=== PATIENT | female | born 1970 | race Two or more races ===

== ENCOUNTER 2020-09-24 10:20 | Inpatient (IN) | payer OTHER ==
[~2020-09-24] VITALS: Ht 152.4 cm; Wt 68.9 kg
[2020-09-24] MEDS ORDERED: dexAMETHasone 10mg/ml Inj IV ONE (10:30)
[2020-09-24 10:35] VITALS: BP 149/94
--- NOTE | 2020-09-24 10:35 | NUR ---
ED Nurse Note: Pt BIBA for SOB since Tuesday. On Tuesday, pt was diagnosed COVID +. She is alert and orientedx4, ambulatory. She has been seen by ERMD. Pt is 95% 4L NC. She states she has nausea but no bodyaches or chills. IV established. Blood labs and COVID swab sent to lab.
--- NOTE | 2020-09-24 11:14 | Diagnostic Imaging Report ---
Indication: Reason For Exam: SOB Technique: Single AP view of the chest. Comparison: None. Findings: Heart is not enlarged when accounting for projection and technique. There are scattered bilateral patchy airspace opacities as well as diffuse interstitial opacities. No pneumothorax. No pleural effusion. No osseous abnormality. IMPRESSION: Diffuse bilateral airspace disease, the differential for which includes multifocal or atypical/viral pneumonia, less likely alveolar pulmonary edema.
[2020-09-24 11:21] LABS: BASOPHILS % (AUTO) 0.2 % (0.0-2.0); EOSINOPHILS % (AUTO) 0.3 % (0.0-3.0); HEMATOCRIT 40.9 % (37.0-47.0); HEMOGLOBIN 13.6 G/DL (12.0-16.0); LYMPHOCYTES % (AUTO) 16.2 % (20.0-45.0); MEAN CORPUSCULAR VOLUME 87 FL (80-99); MONOCYTES % (AUTO) 5.6 % (1.0-10.0); NEUTROPHILS % (AUTO) 77.7 % (45.0-75.0); PLATELET COUNT 384 K/UL (150-450); RED BLOOD COUNT 4.69 M/UL (4.20-5.40); RED CELL DISTRIBUTION WIDTH 13.2 % (11.6-14.8); WHITE BLOOD COUNT 6.5 K/UL (4.8-10.8)
--- NOTE | 2020-09-24 11:33 | Emergency Room Report ---
History of Present Illness General Chief Complaint: Dyspnea/Respdistress Source: Patient, EMS Present Illness HPI This patient states that she began having body aches and upper respiratory symptoms about 10 days ago. She states that she did receive the results of her COVID-19 test 5 days ago. She states that she began feeling short of breath 5 days ago also. She states she has been fatigued. She has had low-grade fever. She denies chest pain or abdominal pain. She denies nausea or vomiting. She has no other complaints. 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 COVID-19 Screening: Positive COVID-19 COVID-19 Testing Source: unk Patient History Past Medical History: none, see triage record Social History: Denies: smoking, alcohol use, drug use Last Menstrual Period: unk Now: No Reviewed Nursing Documentation: PMH: Agreed; PSxH: Agreed Nursing Documentation-PMH Past Medical History: No History, Except For Review of Systems All Other Systems: negative except mentioned in HPI Physical Exam Vital Signs Date Time Temp Pulse Resp B/P (MAP) Pulse Ox O2 Delivery O2 Flow Rate FiO2 09/24/20 10:13 98.2 88 18 154/96 (115) 89 Room Air 09/24/20 10:35 4.0 09/24/20 10:35 95 Sp02 EP Interpretation: reviewed, normal General Appearance: no apparent distress, alert, GCS 15, non-toxic Head: normocephalic, atraumatic Eyes: bilateral eye normal inspection, bilateral eye PERRL ENT: hearing grossly normal, normal pharynx, no angioedema, normal voice Neck: normal inspection, full range of motion Respiratory: chest non-tender, lungs clear, normal breath sounds, no respiratory distress, no retraction, no accessory muscle use, speaking full sentences Cardiovascular #1: regular rate, rhythm, no edema Gastrointestinal: normal bowel sounds, non tender, soft, non-distended, no guarding, no rebound Rectal: deferred Musculoskeletal: back normal, normal range of motion, gait/station normal, non- tender Neurologic: alert, motor strength/tone normal, oriented x3, sensory intact, responsive, speech normal Psychiatric: judgement/insight normal, memory normal, mood/affect normal, no suicidal/homicidal ideation Skin: no rash, normal color Medical Decision Making Diagnostic Impression: Primary Impression: COVID-19 Additional Impressions: Hypoxemia Dyspnea Pulmonary edema ER Course This patient has COVID-19 pulmonary edema with hypoxemia. Room air oxygen saturation is around 89 to 90%. On 4 L of nasal cannula the patient's oxygen saturation was 97 to 98%. The patient was given Decadron given the hypoxemia and also Lovenox given the association of COVID-19 with procoagulation. The patient was instructed on proning and admitted for pulmonary hygiene and further monitoring for her hypoxemia. Further COVID-19 care deferred to the inpatient physician caring for the patient. This patient was evaluated in the context of the global COVID-19 pandemic, which necessitated consideration that the patient might be at risk for infection with the [id number]-7 virus that causes COVID-19. Institutional protocols and algorithms that pertain to the evaluation of patients at risk for COVID-19 and the state of rapid change based on information released by multiple regulatory bodies including the CDC and federal and state organizations. These policies and algorithms were followed during the patient's care in the ED. Laboratory Tests Test 09/24/20 10:51 09/24/20 12:00 White Blood Count 6.5 K/UL (4.8-10.8) Red Blood Count 4.69 M/UL (4.20-5.40) Hemoglobin 13.6 G/DL (12.0-16.0) Hematocrit 40.9 % (37.0-47.0) Mean Corpuscular Volume 87 FL (80-99) Mean Corpuscular Hemoglobin 29.0 PG (27.0-31.0) Mean Corpuscular Hemoglobin Concent 33.2 G/DL (32.0-36.0) Red Cell Distribution Width 13.2 % (11.6-14.8) Platelet Count 384 K/UL (150-450) Mean Platelet Volume 6.3 FL (6.5-10.1) L Neutrophils (%) (Auto) 77.7 % (45.0-75.0) H Lymphocytes (%) (Auto) 16.2 % (20.0-45.0) L Monocytes (%) (Auto) 5.6 % (1.0-10.0) Eosinophils (%) (Auto) 0.3 % (0.0-3.0) Basophils (%) (Auto) 0.2 % (0.0-2.0) Prothrombin Time 10.6 SEC (9.30-11.50) Prothrombin Time INR 1.0 (0.9-1.1) Activated Partial Thromboplast Time 32 SEC (23-33) D-Dimer 0.52 mg/L FEU (0.00-0.49) H Sodium Level 139 MMOL/L (136-145) Potassium Level 3.3 MMOL/L (3.5-5.1) L Chloride Level 102 MMOL/L (98-107) Carbon Dioxide Level 29 MMOL/L (21-32) Anion Gap 8 mmol/L (5-15) Blood Urea Nitrogen 18 mg/dL (7-18) Creatinine 1.2 MG/DL (0.55-1.30) Estimated Glomerular Filtration Rate 47.9 mL/min (>60) Glucose Level 97 MG/DL (74-106) Lactic Acid Level 1.40 mmol/L (0.4-2.0) Calcium Level 8.2 MG/DL (8.5-10.1) L Ferritin 653 NG/ML (8-388) H Total Bilirubin 0.5 MG/DL (0.2-1.0) Aspartate Amino Transferase (AST) 113 U/L (15-37) H Alanine Aminotransferase (ALT) 102 U/L (12-78) H Alkaline Phosphatase 104 U/L (46-116) Lactate Dehydrogenase 374 U/L (81-234) H Total Creatine Kinase 50 U/L (26-308) Creatine Kinase MB < 0.5 NG/ML (0.0-3.6) Creatine Kinase MB Relative Index 1.0 Troponin I 0.000 ng/mL (0.000-0.056) C-Reactive Protein, Quantitative 26.7 mg/dL (0.00-0.90) H Total Protein 8.6 G/DL (6.4-8.2) H Albumin 3.0 G/DL (3.4-5.0) L Globulin 5.6 g/dL Albumin/Globulin Ratio 0.5 (1.0-2.7) L Lipase 272 U/L (73-393) Urine Color Pending Urine Appearance Pending Urine pH Pending Urine Specific [place] Pending Urine Protein Pending Urine Glucose (UA) Pending Urine Ketones Pending Urine Blood Pending Urine Nitrite Pending Urine Bilirubin Pending Urine Urobilinogen Pending Urine Leukocyte Esterase Pending Microbiology Date/Time Source Procedure Growth Status 09/24/20 10:51 Nasopharynx SARS-CoV-2 RdRp Gene Assay - Final Complete EKG Diagnostic Results Rate: normal Rhythm: NSR ST Segments: no acute changes Rhythm Strip Diag. Results EP Interpretation: yes Rate: 70's Rhythm: NSR, no PVC's, no ectopy Chest X-Ray Diagnostic Results Chest X-Ray Diagnostic Results : Chest X-Ray Ordered: Yes # of Views/Limited/Complete: 1 View Indication: Shortness of Breath EP Interpretation: Yes Interpretation: other - Diffuse bilateral patchy opacities. Impression: Other - Multi-focal pnemonia Electronically Signed by: Josiane Lizama DO Last Vital Signs Date Time Temp Pulse Resp B/P (MAP) Pulse Ox O2 Delivery O2 Flow Rate FiO2 09/24/20 10:35 85 19 Nasal Cannula 4.0 95 09/24/20 10:35 98.2 149/94 95 Disposition: ADMITTED INPATIENT Condition: Serious Scripts No Active Prescriptions or Reported Meds Referrals: NOT CHOSEN IPA/MD,REFERRING (PCP) Josiane Lizama DO Sep 24, 2020 11:33
[2020-09-24 12:02] LABS: ANION GAP 8 mmol/L (5-15); BLOOD UREA NITROGEN 18 mg/dL (7-18); CALCIUM 8.2 MG/DL (8.5-10.1); CARBON DIOXIDE 29 MMOL/L (21-32); CHLORIDE 102 MMOL/L (98-107); CREATININE 1.2 MG/DL (0.55-1.30); POTASSIUM 3.3 MMOL/L (3.5-5.1); SODIUM 139 MMOL/L (136-145)
--- NOTE | 2020-09-24 12:04 | NUR ---
ED Nurse Note: Urine sent.
[2020-09-24 12:21] LABS: ALANINE AMINOTRANSFERASE 102 U/L (12-78); ALBUMIN/GLOBULIN RATIO 0.5 (1.0-2.7); ALKALINE PHOSPHATASE 104 U/L (46-116); ASPARTATE AMINO TRANSFERASE 113 U/L (15-37); BILIRUBIN,TOTAL 0.5 MG/DL (0.2-1.0); CKMB < 0.5 NG/ML (0.0-3.6); CREATINE KINASE 50 U/L (26-308); FERRITIN 653 NG/ML (8-388); LACTATE DEHYDROGENASE 374 U/L (81-234)
[2020-09-24 12:26] LABS: APPEARANCE,URINE SLIGHTLY CLOUDY; BILIRUBIN, URINE NEGATIVE (NEGATIVE); GLUCOSE, URINE (UA) NEGATIVE (NEGATIVE); KETONES,URINE 1+ (NEGATIVE); LEUKOCYTE ESTERASE ,URINE 2+ (NEGATIVE); NITRITE,URINE NEGATIVE (NEGATIVE); PH,URINE 5 (4.5-8.0); PROTEIN,URINE 3+ (NEGATIVE); UROBILINOGEN,URINE 1 MG/DL (0.0-1.0)
[2020-09-24] MEDS ORDERED: Enoxaparin 40mg Inj SUBQ SCH (12:30)
[2020-09-24] MEDS ORDERED: Azithromycin 500 MG in NS 275 ML IVPB ONE (12:30)
[2020-09-24 12:35] LABS: COLOR,URINE YELLOW
[2020-09-24 13:00] VITALS: BP 142/90
--- NOTE | 2020-09-24 14:18 | NUR ---
ED Nurse Note: Report given to Tulio BOLANOS./
--- NOTE | 2020-09-24 14:20 | NUR ---
ED Nurse Note: Pt transferred to tele unit with all belongings. Pt has no acute distress. Received by RN.
--- NOTE | 2020-09-24 14:40 | NUR ---
NURSE NOTES: Patient received by ED nurse Paula. Patient was aao x4 on 4 L nasal cannula. Upon transfer to bed from [facility], patient became short of breath and was laid in bed and vital signs were taken. P: 77, O2: 94%, T: 98.2, BP: 154/84, RR: 22. The patients belonging list was verified and acknowledged. The patient was then placed on the mobile crane operator. The patient was oriented to the room, the bed was placed in the lowest position, locked side rails x2 and bed alarm in zone 1. The patient was educated on fall risk, the call light within reach and yellow socks were applied on patient. Dr. Parker was notified of admission and awaiting orders.
[2020-09-24 16:00] VITALS: BP 141/86
[2020-09-24] MEDS ORDERED: Albuterol/Ipratropium 3ml neb HHN PRN (16:15)
[2020-09-24] MEDS: D5 1/2NS 1,000 ML IV SCH (16:15)
[2020-09-24] MEDS ORDERED: Loading Dose:Remdesivir 200mg/NS 210ml IV SCH ×2 (18:00)
--- NOTE | 2020-09-24 18:45 | Consultation ---
DATE OF CONSULTATION: 09/24/2020 PULMONARY CONSULTATION HISTORY OF PRESENT ILLNESS: This is a 49-year-old female who came to the hospital with upper respiratory symptoms with cough and congestion as well as body aches. She reports it has been ongoing for about 10 days. She states she was found to be COVID-19 positive about 5 days ago. The patient underwent a repeat COVID-19 rapid gene assay at [facility], which had a positive result. The patient underwent imaging studies, which showed diffuse bilateral patchy airspace disease suspicious for pneumonic process. The patient has a history of recent positivity for COVID-19 five days ago. No other medical illnesses known. ALLERGIES: None. SURGERIES: None. REVIEW OF SYSTEMS: Denies any headaches, hematemesis, melena, or hematochezia. PHYSICAL EXAMINATION: GENERAL: A 49-year-old female. HEENT: Unremarkable. LUNGS: Clear breath sounds bilaterally. ABDOMEN: Soft. EXTREMITIES: There is no edema. NEUROLOGIC: Nonfocal. VITAL SIGNS: Blood pressure at this time is 130/60, heart rate is 104, respirations 20. She is afebrile. O2 sat is 96% on 4 L oxygen. LABORATORY TESTING: Normal CBC and BMP. Ferritin 653. AST, ALT are both elevated. LDH 374, CRP 26.7, potassium 3.3. Coags, D-dimer is 0.5. Urinalysis negative. IMAGING STUDIES: X-ray chest obtained, which shows bilateral airspace disease. IMPRESSION: 1. COVID-19 pneumonia. 2. No other known medical illnesses. 3. Mild hypoxemia. DISCUSSION: The patient is a candidate for Decadron, which she received in the emergency room. She will be on DVT prophylaxis and broad-spectrum antibiotics. Remdesivir has been started per Dr. Young. We will follow carefully. Order oxygen as needed. Mario Alberto Gallo M.D. DR: LAINEY JOB#: [id number] CC:
--- NOTE | 2020-09-24 19:00 | NUR ---
NURSE HAND-OFF REPORT: Important Events on Shift:[Arrived to Tele @ 1440, administered remdesivir per MD and combivent for shortness of breath ] Patient Status: [aaox4, stable, full code] Diet: [Regular] Pending Orders: [N/A] Pending Results/Labs:[N/A] Pending MD notification:[N/A] Latest Vital Signs: Temperature 97.5 , Pulse 79 , B/P 141 /86 , Respiratory Rate 20 , O2 SAT 96 , Nasal Cannula, O2 Flow Rate 4.0 . Vital Sign Comment: [] EKG Rhythm: Sinus Rhythm Rhythm change?: N MD Notified?: - MD Response: Latest Ackerman Fall Score: 30 Fall Risk: Medium Risk Safety Measures: Call light Within Reach, Bed Alarm Zone 1, Side Rails Side Rails x1, Bed position Low and Locked. Fall Precautions: Yellow Socks Yellow Gown Patient Fall Education Report given to [LUIS MIGUEL Gallo].
--- NOTE | 2020-09-24 19:10 | NUR ---
NURSE NOTES: Important Events on Shift: Received report from Carlos A Casey RN. Pt is in stable condition, no signs or symptoms of distress or pain noted. Pt is slightly tachypneic, RR 26, c/o SOB o2 raised to 4LPM. Pt received first dose of remdesivir during AM shift. No signs or symptoms of adverse reaction noted. Pt denies pain at this time. Will continue to monitor closely. Will continue plan of care. Patient Status: stable Diet: regular Pending Orders: none Pending Results/Labs: cmp, cbc, billirubin Pending MD notification: none Latest Vital Signs: Temperature 97.5 , Pulse 79 , B/P 141 /86 , Respiratory Rate 20 , O2 SAT 96 , Nasal Cannula, O2 Flow Rate 4.0 . Vital Sign Comment: stable EKG Rhythm: Sinus Rhythm Rhythm change?: N MD Notified?: - MD Response: Latest Ackerman Fall Score: 30 Fall Risk: Medium Risk Safety Measures: Call light Within Reach, Bed Alarm Zone 1, Side Rails Side Rails x1, Bed position Low and Locked. Fall Precautions: YES Yellow Socks YES Yellow Gown YES Patient Fall Education YES
[2020-09-24 20:00] VITALS: BP 146/88
[2020-09-24] MEDS: Heparin 5000 units/ml inj SUBQ SCH (21:28)
[2020-09-24] MEDS ORDERED: Acetaminophen 500mg (ES) tab ORAL PRN (23:15)
[2020-09-24] MEDS: guaiFENesin /DM 10ml syrup ORAL PRN (23:35)
[2020-09-25] VITALS: BP 138/89
[2020-09-25 04:00] VITALS: BP 136/82
[2020-09-25 07:38] LABS: BASOPHILS % (AUTO) 0.7 % (0.0-2.0); EOSINOPHILS % (AUTO) 0.1 % (0.0-3.0); HEMATOCRIT 36.7 % (37.0-47.0); HEMOGLOBIN 12.6 G/DL (12.0-16.0); LYMPHOCYTES % (AUTO) 19.4 % (20.0-45.0); MEAN CORPUSCULAR VOLUME 85 FL (80-99); MONOCYTES % (AUTO) 10.9 % (1.0-10.0); NEUTROPHILS % (AUTO) 68.9 % (45.0-75.0); PLATELET COUNT 430 K/UL (150-450); RED CELL DISTRIBUTION WIDTH 12.9 % (11.6-14.8); WHITE BLOOD COUNT 4.1 K/UL (4.8-10.8)
--- NOTE | 2020-09-25 07:43 | NUR ---
NURSE HAND-OFF REPORT: Important Events on Shift: Increase in coughing and SOB, Hannah notifed. Patient Status: stable Diet: reg Pending Orders: none Pending Results/Labs: cmp, cbc, billirubin Pending MD notification: none Latest Vital Signs: Temperature 97.9 , Pulse 70 , B/P 136 /82 , Respiratory Rate 18 , O2 SAT 95 , Nasal Cannula, O2 Flow Rate 4.0 . Vital Sign Comment: stable EKG Rhythm: Sinus Rhythm Rhythm change?: N MD Notified?: - MD Response: Latest Ackerman Fall Score: 35 Fall Risk: Medium Risk Safety Measures: Call light Within Reach, Bed Alarm Zone 1, Side Rails Side Rails x2, Bed position Low and Locked. Fall Precautions: YES Yellow Socks YES Yellow Gown YES Door Sign YES Patient Fall Education YES Report given to ANTHONY Wood RN
--- NOTE | 2020-09-25 07:50 | NUR ---
NURSE NOTES: Called respiratory therapist regarding oxygen desaturation to 90%. Patient in stable condition but is short of breath. Called and left voicemail for Dr. Gallo regarding desaturation to low 90's and request for oxygen, provided callback number.
[2020-09-25 07:55] LABS: ALANINE AMINOTRANSFERASE 84 U/L (12-78); ALBUMIN 2.6 G/DL (3.4-5.0); ALBUMIN/GLOBULIN RATIO 0.5 (1.0-2.7); ALKALINE PHOSPHATASE 97 U/L (46-116); ANION GAP 7 mmol/L (5-15); ASPARTATE AMINO TRANSFERASE 84 U/L (15-37); BILIRUBIN,DIRECT 0.1 MG/DL (0.0-0.3); BILIRUBIN,TOTAL 0.4 MG/DL (0.2-1.0); BLOOD UREA NITROGEN 20 mg/dL (7-18); CALCIUM 8.1 MG/DL (8.5-10.1); CARBON DIOXIDE 28 MMOL/L (21-32); CHLORIDE 104 MMOL/L (98-107); CREATININE 0.8 MG/DL (0.55-1.30); POTASSIUM 3.9 MMOL/L (3.5-5.1); SODIUM 138 MMOL/L (136-145)
[2020-09-25 08:00] VITALS: BP 132/68
[2020-09-25] MEDS: D5 1/2NS 1,000 ML IV SCH (08:59)
[2020-09-25] MEDS: Heparin 5000 units/ml inj SUBQ SCH ×2 (09:00→20:50)
[2020-09-25] MEDS: guaiFENesin /DM 10ml syrup ORAL PRN (09:23)
[2020-09-25 12:00] VITALS: BP 148/90
--- NOTE | 2020-09-25 12:01 | NUR ---
P.T Note: P.T evaluation completed and tx initiated. Please refer to P.T evaluation for current functional status. Pt is alert, O x 4. NO c/o pain. however ADL/functional mobility participation is limited by generalized weakness and coughing and SOB with minimal exertion. Pt currently at 6 l/min O2 via NC saturating at 94-95% at rest and 88-89% with exertion. Pt able to perform bed mobility tasks independent and CGA X 1 for transfers OOB. Pt was only able to stand however too weak and out of breath to take further steps. Pt required for slow pacing and proper breathing technique to conserve energy, alleviate SOB and maximize function. Pt will be seen 5x/wk, QD for skilled P.T to improve activity tolerance and facilitate return to PLOF. Pt is cleared for OOB activities with nursing assist.
--- NOTE | 2020-09-25 13:00 | NUR ---
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 98.3 HR 88 RR 18 B/P 154/96 4L NC O2 SAT @ 98% K 3.3 AST 113 ALK 100 CXR=Diffuse bilateral airspace disease, the differential for which includes multifocal or atypical/viral pneumonia, less likely alveolar pulmonary edema. IS: DECADRON IV LOVENOX SUBC. ADMITTED TO TELE @ 1420 TELE STATUS DCP RETURN HOME
--- NOTE | 2020-09-25 13:21 | NUR ---
ELECTRIC TRANSFER OPERATOR NOTES CLINICALS FAXED TO [facility].
[2020-09-25 16:00] VITALS: BP 144/86
--- NOTE | 2020-09-25 16:01 | Pulmonology Progress Note ---
Subjective ROS Limited/Unobtainable: No Constitutional: Denies: fever HEENT: Repors: no symptoms Respiratory: Reports: shortness of breath Cardiovascular: Reports: no symptoms Gastrointestinal/Abdominal: Reports: no symptoms Allergies: Coded Allergies: No Known Allergies (Unverified , 09/24/20) Objective Last 24 Hour Vital Signs Date Time Temp Pulse Resp B/P (MAP) Pulse Ox O2 Delivery O2 Flow Rate FiO2 09/25/20 12:00 62 09/25/20 12:00 97.7 66 20 148/90 (109) 100 09/25/20 09:00 Non-Rebreather 6.0 09/25/20 08:00 70 09/25/20 08:00 97.5 65 20 132/68 (89) 93 09/25/20 04:00 97.9 70 18 136/82 (100) 95 09/25/20 04:00 70 09/25/20 00:04 98.1 09/25/20 00:00 98.1 67 22 138/89 (105) 95 09/25/20 00:00 72 09/24/20 21:00 Nasal Cannula 4.0 09/24/20 20:00 97.7 67 22 146/88 (107) 95 09/24/20 20:00 78 09/24/20 16:00 97.5 79 20 141/86 (104) 96 09/24/20 16:00 75 Intake and Output 09/24/20 09/25/20 19:00 07:00 Intake Total 120 ml Balance 120 ml Intake Oral 0 ml IV Total 120 ml # Voids 1 2 Objective 10/05/2020 pt asleep; per RN, earlier today pt's saturation dropped to 90% on 4 lpm NC with increased work of breathing General Appearance: WD/WN, no acute distress HEENT: normocephalic, atraumatic Respiratory: chest wall non-tender, lungs clear Cardiovascular: normal rate, regular rhythm Neurologic: alert, oriented x 3 Microbiology Date/Time Source Procedure Growth Status 09/24/20 10:51 Nasopharynx SARS-CoV-2 RdRp Gene Assay - Final Complete Laboratory Tests 09/25/20 05:43: White Blood Count 4.1L, Red Blood Count 4.30, Hemoglobin 12.6, Hematocrit 36.7L, Mean Corpuscular Volume 85, Mean Corpuscular Hemoglobin 29.3, Mean Corpuscular Hemoglobin Concent 34.3, Red Cell Distribution Width 12.9, Platelet Count 430, Mean Platelet Volume 6.4L, Neutrophils (%) (Auto) 68.9, Lymphocytes (%) (Auto) 19.4L, Monocytes (%) (Auto) 10.9H, Eosinophils (%) (Auto) 0.1, Basophils (%) (Auto) 0.7, Sodium Level 138, Potassium Level 3.9, Chloride Level 104, Carbon Dioxide Level 28, Anion Gap 7, Blood Urea Nitrogen 20H, Creatinine 0.8, Estimat Glomerular Filtration Rate > 60, Glucose Level 109H, Calcium Level 8.1L, Total Bilirubin 0.4, Direct Bilirubin 0.1, Aspartate Amino Transf (AST/SGOT) 84H, Alanine Aminotransferase (ALT/SGPT) 84H, Alkaline Phosphatase 97, Total Protein 8.1, Albumin 2.6L, Globulin 5.5, Albumin/Globulin Ratio 0.5L Current Medications Medications (Trade) Dose Ordered Sig/Shannon Route PRN Reason Start Time Stop Time Status Last Admin Dose Admin Acetaminophen (Tylenol) 500 mg Q6H PRN ORAL Pain Scale 1-3/ Temp > 100.4 F 09/24/20 23:15 10/24/20 23:14 09/24/20 23:34 Albuterol/ Ipratropium (Combivent Respimat) 1 puff Q6H PRN INH Shortness of Breath 09/24/20 16:30 10/24/20 16:29 09/24/20 18:28 Dexamethasone (Decadron) 6 mg DAILY ORAL 09/25/20 09:00 10/04/20 09:01 09/25/20 08:58 Dextrose/Sodium Chloride 1,000 ml @ 60 mls/hr [id number] IV 09/24/20 16:15 10/24/20 16:14 09/25/20 08:59 Guaifenesin/ Dextromethorphan (Robitussin DM Syrup) 15 ml Q8H PRN ORAL For Cough 09/24/20 23:15 12/23/20 23:14 09/25/20 09:23 Heparin Sodium (Porcine) (Heparin 5000 units/ml) 5,000 units EVERY 12 HOURS SUBQ 09/24/20 21:00 11/08/20 20:59 12/10/20 09:00 Ondansetron HCl (Zofran) 4 mg Q6H PRN IVP Nausea & Vomiting 09/24/20 23:15 10/24/20 23:14 Remdesivir 100 mg/ Sodium Chloride 250 ml @ 250 mls/hr Q24H IV 09/25/20 18:00 09/28/20 18:59 Assessment/Plan Assessment/Plan 1. COVID-19 pneumonia. - Continue Decadron - broad-spectrum Abx - Remdesivir added per Dr. Young - pt was desaturating down to 90% on 4 lpm today with increased work of breathing - currently on 15 L NRB; titrate while keeping SaO2 >92% 2. No other known medical illnesses. 3. Mild hypoxemia. DVT ppx The care of this patient was discussed with my supervising physician Time spent for this encounter was approximately 31 minutes The patient was seen and examined at bedside and all new and available data was reviewed in the patients chart. I agree with the above findings, impression, and plan. (Patient was seen earlier today. Signature timestamp does not reflect patient encounter time) Winston Arredondo MD Sep 25, 2020 16:01 Mario Alberto Gallo MD Sep 25, 2020 17:49
--- NOTE | 2020-09-25 16:45 | Consultation ---
DATE OF CONSULTATION: 09/25/2020 INFECTIOUS DISEASES CONSULTATION CONSULTING PHYSICIAN: Hugo Flynn MD This consult is for coverage of Mati Young MD PRIMARY ATTENDING PHYSICIAN: Ankur Parker DO REASON FOR CONSULT: COVID-19 pneumonia. HISTORY OF PRESENT ILLNESS: This is a 49-year-old [place] female admitted yesterday from home complaining of fatigue and upper respiratory symptoms for 10 days. She has shortness of breath for 5 days and positive COVID testing on 09/23/2020. She had low-grade fever and found to be hypoxemic, currently on 6 L oxygen. PAST MEDICAL HISTORY: Insignificant. ALLERGIES: No known drug allergies. MEDICATIONS: Getting remdesivir, dexamethasone, Tylenol, heparin, albuterol/ipratropium inhaler. SOCIAL HISTORY: She is . and son have COVID. Denies alcohol and drug abuse. Denies smoking. REVIEW OF SYSTEMS: As per history of present illness. No fever in the hospital. PHYSICAL EXAMINATION: VITAL SIGNS: Temperature is 97.9, pulse 70, and blood pressure is 136/82. GENERAL APPEARANCE: She seems to have normal weight. HEAD AND NECK: Parnell conjunctivae. HEART: Normal rate. LUNGS: Clear. She has frequent dry cough. ABDOMEN: Soft and nontender. EXTREMITIES: No edema. NEUROLOGIC: She is awake, alert, and oriented x3. LABORATORY AND DIAGNOSTIC DATA: WBC 4.1, hemoglobin 12.6, hematocrit 36.4, platelet is 430,000. Sodium 138, potassium 3.9, chloride 104, bicarb 28, BUN 20, creatinine 0.8, glucose is 109. AST 84, ALT 84, alkaline phosphatase 97, albumin is 2.6. Chest x-ray shows diffuse bilateral infiltrates atypical viral pneumonia, less likely pulmonary edema. IMPRESSION: COVID-19 pneumonia, hypoxemia, and elevated transaminase. RECOMMENDATION: We will continue dexamethasone and remdesivir. I will follow up the clinical course. At the end of my exam, I thank Dr. Parker for involving me in the care of this patient. Hugo Flynn M.D. DR: AI JOB#: [id number] CC: CAIO
[2020-09-25] MEDS ORDERED: Maintenance Dose:Remdesivir 100mg/NS 230ml x 4 Doses IV SCH ×2 (18:00)
[2020-09-25] MEDS: Maintenance Dose:Remdesivir 100mg/NS 230ml x 4 Doses IV SCH ×2 (18:11)
--- NOTE | 2020-09-25 19:30 | NUR ---
NURSE HAND-OFF REPORT: Important Events on Shift: nonrebreather 15L fiO2 60 spO2 99% Patient Status: full code, alert and oriented x4, stable condition with oxygen applied Diet: regular Pending Orders: [] Pending Results/Labs:[] Pending MD notification:[] Latest Vital Signs: Temperature 97.7 , Pulse 65 , B/P 144 /86 , Respiratory Rate 20 , O2 SAT 100 , Non-Rebreather, O2 Flow Rate 6.0 . Vital Sign Comment: [] EKG Rhythm: Sinus Rhythm Rhythm change?: N MD Notified?: - MD Response: Latest Ackerman Fall Score: 35 Fall Risk: Medium Risk Safety Measures: Call light Within Reach, Bed Alarm Zone 1, Side Rails Side Rails x2, Bed position Low and Locked. Fall Precautions: Yellow Socks Yellow Gown Door Sign Patient Fall Education Report given to Danita Barnett RN.
--- NOTE | 2020-09-25 19:40 | NUR ---
Received report from LUIS MIGUEL Victor. Pt is in stable condition, no signs or symptoms of distress or pain noted. Pt is a/ox 4. Pt is slightly tachypneic, RR 26, c/o SOB 15l non-rebreather FIO2 60. Pt received 2/4 dose of remdesivir during AM shift. No signs or symptoms of adverse reaction noted. Pt denies pain at this time. IV on right ac 20G running D5 1/2 NS. patent flushed no erythema or bleeding. Will continue to monitor closely. Will continue plan of care.
[2020-09-25 20:00] VITALS: BP 134/84
--- NOTE | 2020-09-25 20:15 | History and Physical Report ---
DATE OF ADMISSION: 09/24/2020 DATE AND TIME SEEN: 09/25/2020 at 1 p.m. CONSULTANTS: 1. Mati Young MD. 2. Mario Alberto Gallo MD. CHIEF COMPLAINT: COVID infection, short of breath, pneumonia. BRIEF HISTORY: This 49-year-old female presents to [place] last night with history of increased shortness of breath x2 days, was found to have pneumonia and COVID infection, pulmonary disease, was hypoxemic at 89%. Patient was admitted to [facility]. Currently getting pulmonary treatment, sleepy in bed, not talking much. History is obtained from chart. REVIEW OF SYSTEMS: Unavailable. PAST MEDICAL HISTORY: Nothing. PAST SURGICAL HISTORY: None. MEDICATIONS: Remdesivir, dexamethasone, Zofran, Tylenol, heparin, potassium, albuterol. ALLERGIES: Denies. SOCIAL HISTORY: No smoking or alcohol. No intravenous drug abuse. FAMILY HISTORY: Noncontributory. PHYSICAL EXAMINATION: GENERAL: Sleeping in bed, getting pulmonary treatment, slight short of breath, sleepy. Calm in room. VITAL SIGNS: Temperature is 97, pulse 66, respirations 20, blood pressure 148/90. HEENT: Normocephalic, atraumatic. NECK: Trachea midline. CARDIOVASCULAR: No peripheral edema. LUNGS: Slightly short of breath. ABDOMEN: No apparent wounds. EXTREMITIES: No cyanosis or clubbing. NEUROLOGIC: Patient is moving all extremities, slightly weak. LABORATORY AND DIAGNOSTIC DATA: Labs at this time show white count 4.1, otherwise CBC is normal. BMP shows BUN is 20, glucose 109, calcium 8.1. AST and ALT are both 84. Albumin 2.6. ASSESSMENT: 1. COVID infection. 2. Pneumonia. 3. Pulmonary disease. 4. Malnutrition. 5. Hypoxemia. PLAN: 1. O2, pulmonary treatment. 2. Antibiotics per Infectious Disease. 3. Dietary followup. 4. PT, dietary evaluation. 5. CBC, BMP in the morning. Ankur Parker D.O. DR: LAURO JOB#: [id number] CC:
[2020-09-26] VITALS: BP 145/83
[2020-09-26] MEDS: D5 1/2NS 1,000 ML IV SCH ×2 (01:35→17:57)
[2020-09-26 04:00] VITALS: BP 146/87
--- NOTE | 2020-09-26 07:07 | NUR ---
NURSE HAND-OFF REPORT: Important Events on Shift: Patient completed 2/4 bags of Remdesivir Patient Status: No acute distress Diet: Regular diet Pending Orders: Pending Results/Labs: Pending MD notification: Latest Vital Signs: Temperature 98.1 , Pulse 58 , B/P 146 /87 , Respiratory Rate 22 , O2 SAT 98 , Non-Rebreather, O2 Flow Rate 15.0 . Vital Sign Comment: EKG Rhythm: Sinus Bradycardia Rhythm change?: N MD Notified?: - MD Response: Latest Ackerman Fall Score: 35 Fall Risk: Medium Risk Safety Measures: Call light Within Reach, Bed Alarm Zone 1, Side Rails Side Rails x2, Bed position Low and Locked. Fall Precautions: Yellow Socks Yellow Gown Door Sign Patient Fall Education Report given to Lorin BOLANOS.
--- NOTE | 2020-09-26 07:25 | NUR ---
NURSE NOTES: Received report from Danita/RN. Pt awake, having breakfast in bed. Alert and oriented, able to make needs known. On non-rebreather mask 15L Fio2 60%, no distress or SOB noted. IV on left AC 22G running D5 1/2 NS @ 60ml/hr. Bed in lowest position and locked. Call light within reach, encouraged to use it when needed. Side rails up X2. Will continue plan of care.
[2020-09-26 07:55] LABS: BASOPHILS % (AUTO) 0.1 % (0.0-2.0); HEMATOCRIT 34.8 % (37.0-47.0); HEMOGLOBIN 12.3 G/DL (12.0-16.0); LYMPHOCYTES % (AUTO) 15.3 % (20.0-45.0); MEAN CORPUSCULAR VOLUME 83 FL (80-99); MONOCYTES % (AUTO) 7.4 % (1.0-10.0); NEUTROPHILS % (AUTO) 77.2 % (45.0-75.0); PLATELET COUNT 472 K/UL (150-450); RED BLOOD COUNT 4.18 M/UL (4.20-5.40); RED CELL DISTRIBUTION WIDTH 13.9 % (11.6-14.8)
[2020-09-26 08:00] VITALS: BP 152/86
--- NOTE | 2020-09-26 08:03 | NUR ---
CASE MANAGEMENT:REVIEW 09/26/20 SI: COVID PNA 98.1 63 22 146/87 98% ON NRB 15L IS: IV REMDESIVIR Q24 ( DECADRON PO QD HEPARIN SQ Q12 IVF@ 60/HR DUONEB HHN Q6HRS PRN : TELEMETRY STATUS DCP; FROM HOME
[2020-09-26 08:10] LABS: ALANINE AMINOTRANSFERASE 64 U/L (12-78); ALBUMIN 2.5 G/DL (3.4-5.0); ALBUMIN/GLOBULIN RATIO 0.5 (1.0-2.7); ALKALINE PHOSPHATASE 86 U/L (46-116); ANION GAP 8 mmol/L (5-15); ASPARTATE AMINO TRANSFERASE 57 U/L (15-37); BILIRUBIN,DIRECT < 0.1 MG/DL (0.0-0.3); BILIRUBIN,TOTAL 0.3 MG/DL (0.2-1.0); BLOOD UREA NITROGEN 20 mg/dL (7-18); CALCIUM 7.7 MG/DL (8.5-10.1); CARBON DIOXIDE 27 MMOL/L (21-32); CHLORIDE 105 MMOL/L (98-107); CREATININE 0.8 MG/DL (0.55-1.30); POTASSIUM 3.6 MMOL/L (3.5-5.1); SODIUM 140 MMOL/L (136-145)
[2020-09-26] MEDS: Heparin 5000 units/ml inj SUBQ SCH ×2 (08:51→21:00)
--- NOTE | 2020-09-26 09:15 | General Progress Note ---
Subjective Constitutional: Reports: weakness Allergies: Coded Allergies: No Known Allergies (Unverified , 09/24/20) All Systems: reviewed and negative except above Subjective pulm tx calm Objective Last 24 Hour Vital Signs Date Time Temp Pulse Resp B/P (MAP) Pulse Ox O2 Delivery O2 Flow Rate FiO2 09/26/20 08:00 97.9 61 20 152/86 (108) 100 09/26/20 04:00 58 09/26/20 04:00 98.1 63 22 146/87 (106) 98 09/26/20 00:00 58 09/26/20 00:00 97.5 60 22 145/83 (103) 100 09/25/20 21:00 Non-Rebreather 15.0 09/25/20 20:00 97.7 64 24 134/84 (101) 99 09/25/20 20:00 61 09/25/20 16:00 65 09/25/20 16:00 97.7 72 20 144/86 (105) 100 09/25/20 12:00 62 09/25/20 12:00 97.7 66 20 148/90 (109) 100 Intake and Output 09/25/20 09/26/20 19:00 07:00 Intake Total 64 ml 780 ml Balance 64 ml 780 ml Intake Oral 4 ml 120 ml IV Total 60 ml 660 ml # Voids 3 2 Laboratory Tests 09/26/20 05:50: White Blood Count 7.0#, Red Blood Count 4.18L, Hemoglobin 12.3, Hematocrit 34.8L , Mean Corpuscular Volume 83, Mean Corpuscular Hemoglobin 29.5, Mean Corpuscular Hemoglobin Concent 35.4, Red Cell Distribution Width 13.9, Platelet Count 472H, Mean Platelet Volume 5.9L, Neutrophils (%) (Auto) 77.2H, Lymphocytes (%) (Auto) 15.3L, Monocytes (%) (Auto) 7.4, Eosinophils (%) (Auto) 0.0, Basophils (%) (Auto) 0.1, Sodium Level 140, Potassium Level 3.6, Chloride Level 105, Carbon Dioxide Level 27, Anion Gap 8, Blood Urea Nitrogen 20H, Creatinine 0.8, Estimat Glomerular Filtration Rate > 60, Glucose Level 127H, Calcium Level 7.7L, Total Bilirubin 0.3, Direct Bilirubin < 0.1, Aspartate Amino Transf (AST/SGOT) 57H, Alanine Aminotransferase (ALT/SGPT) 64, Alkaline Phosphatase 86, Total Protein 7.5, Albumin 2.5L, Globulin 5.0, Albumin/Globulin Ratio 0.5L Height (Feet): 5 Height (Inches): 0.00 Weight (Pounds): 152 General Appearance: lethargic EENT: normal ENT inspection Neck: normal alignment Cardiovascular: normal peripheral pulses, normal rate, regular rhythm Respiratory/Chest: chest wall non-tender, lungs clear, normal breath sounds Abdomen: normal bowel sounds, non tender, soft Extremities: normal inspection Edema: no edema noted Arm (L), no edema noted Arm (R), no edema noted Leg (L), no edema noted Leg (R), no edema noted Pedal (L), no edema noted Pedal (R), no edema noted Generalized Neurologic: motor weakness Skin: normal pigmentation, warm/dry Assessment/Plan Problem List: (1) SOB (shortness of breath) ICD Codes: R06.02 - Shortness of breath SNOMED: 438900652 (2) Pneumonia ICD Codes: J18.9 - Pneumonia, unspecified organism SNOMED: 166938910 (3) Malnutrition ICD Codes: E46 - Unspecified protein-calorie malnutrition SNOMED: 81865971 (4) Hypoxemia ICD Codes: R09.02 - Hypoxemia SNOMED: 395629627 (5) Dyspnea ICD Codes: R06.00 - Dyspnea, unspecified SNOMED: 432587004 (6) Pulmonary edema ICD Codes: J81.1 - Chronic pulmonary edema SNOMED: 73570038 (7) COVID-19 ICD Codes: U07.1 - COVID-19 SNOMED: 567482804 Status: unchanged Assessment/Plan: o2 pulm tx abx pt diet cbc bmp am ParkerAnkur AlexisReyna DO Sep 26, 2020 09:15
[2020-09-26] MEDS ORDERED: D5 1/2NS 1000ml IV ONE (09:59)
--- NOTE | 2020-09-26 10:58 | Infectious Diseases Prog Note ---
Assessment/Plan Assessment/Plan antibiotics : remdesivir 20 - A 1. COVID 19 pneumonia on 15 liters O2, saturation 100 % 2. increased LFT improving P 1. continue remdesivir day 3 2. continue dexamethasone day 3 3. continue isolation 4. will follow up cultures Subjective Constitutional: Denies: fever, chills Respiratory: Reports: shortness of breath, dry cough Gastrointestinal/Abdominal: Denies: nausea, vomiting, diarrhea Musculoskeletal: Reports: pain - in body Allergies: Coded Allergies: No Known Allergies (Unverified , 09/24/20) Objective Last 24 Hour Vital Signs Date Time Temp Pulse Resp B/P (MAP) Pulse Ox O2 Delivery O2 Flow Rate FiO2 09/26/20 09:00 Non-Rebreather 15.0 09/26/20 08:00 65 09/26/20 08:00 97.9 61 20 152/86 (108) 100 09/26/20 04:00 58 09/26/20 04:00 98.1 63 22 146/87 (106) 98 09/26/20 00:00 58 09/26/20 00:00 97.5 60 22 145/83 (103) 100 09/25/20 21:00 Non-Rebreather 15.0 09/25/20 20:00 97.7 64 24 134/84 (101) 99 09/25/20 20:00 61 09/25/20 16:00 65 09/25/20 16:00 97.7 72 20 144/86 (105) 100 09/25/20 12:00 62 09/25/20 12:00 97.7 66 20 148/90 (109) 100 Height (Feet): 5 Height (Inches): 0.00 Weight (Pounds): 152 Microbiology Date/Time Source Procedure Growth Status 09/24/20 10:51 Nasopharynx SARS-CoV-2 RdRp Gene Assay - Final Complete Laboratory Tests Test 09/26/20 05:50 White Blood Count 7.0 K/UL (4.8-10.8) # Red Blood Count 4.18 M/UL (4.20-5.40) L Hemoglobin 12.3 G/DL (12.0-16.0) Hematocrit 34.8 % (37.0-47.0) L Mean Corpuscular Volume 83 FL (80-99) Mean Corpuscular Hemoglobin 29.5 PG (27.0-31.0) Mean Corpuscular Hemoglobin Concent 35.4 G/DL (32.0-36.0) Red Cell Distribution Width 13.9 % (11.6-14.8) Platelet Count 472 K/UL (150-450) H Mean Platelet Volume 5.9 FL (6.5-10.1) L Neutrophils (%) (Auto) 77.2 % (45.0-75.0) H Lymphocytes (%) (Auto) 15.3 % (20.0-45.0) L Monocytes (%) (Auto) 7.4 % (1.0-10.0) Eosinophils (%) (Auto) 0.0 % (0.0-3.0) Basophils (%) (Auto) 0.1 % (0.0-2.0) Sodium Level 140 MMOL/L (136-145) Potassium Level 3.6 MMOL/L (3.5-5.1) Chloride Level 105 MMOL/L (98-107) Carbon Dioxide Level 27 MMOL/L (21-32) Anion Gap 8 mmol/L (5-15) Blood Urea Nitrogen 20 mg/dL (7-18) H Creatinine 0.8 MG/DL (0.55-1.30) Estimat Glomerular Filtration Rate > 60 mL/min (>60) Glucose Level 127 MG/DL (74-106) H Calcium Level 7.7 MG/DL (8.5-10.1) L Total Bilirubin 0.3 MG/DL (0.2-1.0) Direct Bilirubin < 0.1 MG/DL (0.0-0.3) Aspartate Amino Transf (AST/SGOT) 57 U/L (15-37) H Alanine Aminotransferase (ALT/SGPT) 64 U/L (12-78) Alkaline Phosphatase 86 U/L (46-116) Total Protein 7.5 G/DL (6.4-8.2) Albumin 2.5 G/DL (3.4-5.0) L Globulin 5.0 g/dL Albumin/Globulin Ratio 0.5 (1.0-2.7) L Current Medications Medications (Trade) Dose Ordered Sig/Shannon Route PRN Reason Start Time Stop Time Status Last Admin Dose Admin Acetaminophen (Tylenol) 500 mg Q6H PRN ORAL Pain Scale 1-3/ Temp > 100.4 F 09/24/20 23:15 10/24/20 23:14 09/24/20 23:34 Albuterol/ Ipratropium (Combivent Respimat) 1 puff Q6H PRN INH Shortness of Breath 09/24/20 16:30 10/24/20 16:29 09/26/20 05:20 Dexamethasone (Decadron) 6 mg DAILY ORAL 09/25/20 09:00 10/04/20 09:01 09/26/20 08:50 Dextrose/Sodium Chloride 1,000 ml @ 60 mls/hr [id number] IV 09/24/20 16:15 10/24/20 16:14 09/25/20 08:59 Guaifenesin/ Dextromethorphan (Robitussin DM Syrup) 15 ml Q8H PRN ORAL For Cough 09/24/20 23:15 12/23/20 23:14 09/25/20 09:23 Heparin Sodium (Porcine) (Heparin 5000 units/ml) 5,000 units EVERY 12 HOURS SUBQ 09/24/20 21:00 11/08/20 20:59 09/26/20 08:51 Ondansetron HCl (Zofran) 4 mg Q6H PRN IVP Nausea & Vomiting 09/24/20 23:15 10/24/20 23:14 Remdesivir 100 mg/ Sodium Chloride 250 ml @ 250 mls/hr Q24H IV 09/25/20 18:00 09/28/20 18:59 09/25/20 18:11 Mati Young MD Sep 26, 2020 10:58
[2020-09-26 12:00] VITALS: BP 145/82
[2020-09-26 16:00] VITALS: BP 135/80
--- NOTE | 2020-09-26 16:04 | Pulmonology Progress Note ---
Subjective ROS Limited/Unobtainable: No Constitutional: Reports: no symptoms; Denies: fever, chills HEENT: Repors: no symptoms Respiratory: Reports: shortness of breath Cardiovascular: Reports: no symptoms Gastrointestinal/Abdominal: Denies: nausea, vomiting, diarrhea Allergies: Coded Allergies: No Known Allergies (Unverified , 09/24/20) All Systems: reviewed and negative except above Objective Last 24 Hour Vital Signs Date Time Temp Pulse Resp B/P (MAP) Pulse Ox O2 Delivery O2 Flow Rate FiO2 09/26/20 12:00 97.7 65 22 145/82 (103) 99 09/26/20 12:00 60 09/26/20 09:00 Non-Rebreather 15.0 09/26/20 08:00 65 09/26/20 08:00 97.9 61 20 152/86 (108) 100 09/26/20 04:00 58 09/26/20 04:00 98.1 63 22 146/87 (106) 98 09/26/20 00:00 58 09/26/20 00:00 97.5 60 22 145/83 (103) 100 09/25/20 21:00 Non-Rebreather 15.0 09/25/20 20:00 97.7 64 24 134/84 (101) 99 09/25/20 20:00 61 Intake and Output 09/25/20 09/26/20 19:00 07:00 Intake Total 64 ml 780 ml Balance 64 ml 780 ml Intake Oral 4 ml 120 ml IV Total 60 ml 660 ml # Voids 3 2 Objective 09/26/2020 pt sitting up in bed; now on 15 L Venturi mask, saturating at 100% 09/25/2020 pt asleep; per RN, earlier today pt's saturation dropped to 90% on 4 lpm NC with increased work of breathing General Appearance: WD/WN, no acute distress HEENT: normocephalic, atraumatic Respiratory: chest wall non-tender, lungs clear Cardiovascular: normal rate, regular rhythm Neurologic: alert, oriented x 3 Microbiology Date/Time Source Procedure Growth Status 09/24/20 10:51 Nasopharynx SARS-CoV-2 RdRp Gene Assay - Final Complete Laboratory Tests 09/26/20 05:50: White Blood Count 7.0#, Red Blood Count 4.18L, Hemoglobin 12.3, Hematocrit 34.8L , Mean Corpuscular Volume 83, Mean Corpuscular Hemoglobin 29.5, Mean Corpuscular Hemoglobin Concent 35.4, Red Cell Distribution Width 13.9, Platelet Count 472H, Mean Platelet Volume 5.9L, Neutrophils (%) (Auto) 77.2H, Lymphocytes (%) (Auto) 15.3L, Monocytes (%) (Auto) 7.4, Eosinophils (%) (Auto) 0.0, Basophils (%) (Auto) 0.1, Sodium Level 140, Potassium Level 3.6, Chloride Level 105, Carbon Dioxide Level 27, Anion Gap 8, Blood Urea Nitrogen 20H, Creatinine 0.8, Estimat Glomerular Filtration Rate > 60, Glucose Level 127H, Calcium Level 7.7L, Total Bilirubin 0.3, Direct Bilirubin < 0.1, Aspartate Amino Transf (AST/SGOT) 57H, Alanine Aminotransferase (ALT/SGPT) 64, Alkaline Phosphatase 86, Total Protein 7.5, Albumin 2.5L, Globulin 5.0, Albumin/Globulin Ratio 0.5L Current Medications Medications (Trade) Dose Ordered Sig/Shannon Route PRN Reason Start Time Stop Time Status Last Admin Dose Admin Acetaminophen (Tylenol) 500 mg Q6H PRN ORAL Pain Scale 1-3/ Temp > 100.4 F 09/24/20 23:15 10/24/20 23:14 09/24/20 23:34 Albuterol/ Ipratropium (Combivent Respimat) 1 puff Q6H PRN INH Shortness of Breath 09/24/20 16:30 10/24/20 16:29 09/26/20 05:20 Dexamethasone (Decadron) 6 mg DAILY ORAL 09/25/20 09:00 10/04/20 09:01 09/26/20 08:50 Dextrose/Sodium Chloride 1,000 ml @ 60 mls/hr [id number] IV 09/24/20 16:15 10/24/20 16:14 09/25/20 08:59 Guaifenesin/ Dextromethorphan (Robitussin DM Syrup) 15 ml Q8H PRN ORAL For Cough 09/24/20 23:15 12/23/20 23:14 09/25/20 09:23 Heparin Sodium (Porcine) (Heparin 5000 units/ml) 5,000 units EVERY 12 HOURS SUBQ 09/24/20 21:00 11/08/20 20:59 09/26/20 08:51 Ondansetron HCl (Zofran) 4 mg Q6H PRN IVP Nausea & Vomiting 09/24/20 23:15 10/24/20 23:14 Remdesivir 100 mg/ Sodium Chloride 250 ml @ 250 mls/hr Q24H IV 09/25/20 18:00 09/28/20 18:59 09/25/20 18:11 Assessment/Plan Assessment/Plan 1. COVID-19 pneumonia. - On decadron - On Remdesivir, added per Dr. Young - currently on 15 L NRB; titrate while keeping SaO2 >92% 2. No other known medical illnesses. 3. Mild hypoxemia. DVT ppx The care of this patient was discussed with my supervising physician Time spent for this encounter was approximately 31 minutes Winston Hamlin Sep 26, 2020 16:04
[2020-09-26] MEDS: Maintenance Dose:Remdesivir 100mg/NS 230ml x 4 Doses IV SCH ×2 (17:57)
--- NOTE | 2020-09-26 19:15 | NUR ---
NURSE NOTES: Report received from LUIS MIGUEL Padgett. Patient is awake alert and oriented x4. Patient is on NR mask at 15 LPM. Call light in reach. Bed at lowest position locked with side rails up. Will continue with plan of care.
--- NOTE | 2020-09-26 19:36 | NUR ---
NURSE HAND-OFF REPORT: Important Events on Shift: Patient Status: Stable Diet: Regular Pending Orders: Pending Results/Labs: Pending MD notification: Latest Vital Signs: Temperature 98.0 , Pulse 59 , B/P 135 /80 , Respiratory Rate 20 , O2 SAT 98 , Non-Rebreather, O2 Flow Rate 15.0 . Vital Sign Comment: Stable EKG Rhythm: Sinus Bradycardia Rhythm change?: N MD Notified?: - MD Response: Latest Ackerman Fall Score: 35 Fall Risk: Medium Risk Safety Measures: Call light Within Reach, Bed Alarm Zone 1, Side Rails Side Rails x2, Bed position Low and Locked. Fall Precautions: Yellow Socks Yellow Gown Door Sign Patient Fall Education Report given to Maile/LUIS MIGUEL.
[2020-09-26 20:00] VITALS: BP 155/90
--- NOTE | 2020-09-26 22:50 | NUR ---
NURSE NOTES: Dr. Parker made aware that patient had episode of sinus winnie 47 but patient is asymptomatic. She was falling asleep but was easily arousable and alert and oriented x4. Also made MD aware that BP was 170/82 and Clonidine 0.1mg QID was ordered. Cardio consult with Dr. Kiser ordered as well. Dr. Kiser also made aware of patient's condition. New orders notd and carried out.
[2020-09-27] VITALS: BP 135/73
[2020-09-27 04:00] VITALS: BP 133/78
[2020-09-27 07:02] LABS: BASOPHILS % (AUTO) 0.4 % (0.0-2.0); EOSINOPHILS % (AUTO) 0.1 % (0.0-3.0); HEMATOCRIT 36.6 % (37.0-47.0); HEMOGLOBIN 12.5 G/DL (12.0-16.0); LYMPHOCYTES % (AUTO) 18.2 % (20.0-45.0); MEAN CORPUSCULAR VOLUME 86 FL (80-99); MONOCYTES % (AUTO) 10.5 % (1.0-10.0); NEUTROPHILS % (AUTO) 70.9 % (45.0-75.0); PLATELET COUNT 508 K/UL (150-450); RED BLOOD COUNT 4.28 M/UL (4.20-5.40); RED CELL DISTRIBUTION WIDTH 12.6 % (11.6-14.8); WHITE BLOOD COUNT 6.7 K/UL (4.8-10.8)
--- NOTE | 2020-09-27 07:15 | NUR ---
NURSE HAND-OFF REPORT: Important Events on Shift:[BP 170/82, HR went down to 47, Dr. Parker made aware. Clonidine given] Patient Status: [Alert and oriented x4] Diet: [Regular] Pending Orders: [] Pending Results/Labs:[] Pending MD notification:[] Latest Vital Signs: Temperature 97.7 , Pulse 48 , B/P 133 /78 , Respiratory Rate 20 , O2 SAT 100 , Non-Rebreather, O2 Flow Rate 15.0 . Vital Sign Comment: [] EKG Rhythm: Sinus Bradycardia Rhythm change?: N MD Notified?: - MD Response: Latest Ackerman Fall Score: 35 Fall Risk: Medium Risk Safety Measures: Call light Within Reach, Bed Alarm Zone 1, Side Rails Side Rails x2, Bed position Low and Locked. Fall Precautions: Yellow Socks Yellow Gown Door Sign Patient Fall Education Report given to [LUIS MIGUEL Ch].
[2020-09-27 07:25] LABS: ALANINE AMINOTRANSFERASE 65 U/L (12-78); ALBUMIN 2.6 G/DL (3.4-5.0); ALBUMIN/GLOBULIN RATIO 0.5 (1.0-2.7); ALKALINE PHOSPHATASE 87 U/L (46-116); ANION GAP 9 mmol/L (5-15); ASPARTATE AMINO TRANSFERASE 65 U/L (15-37); BILIRUBIN,DIRECT 0.1 MG/DL (0.0-0.3); BILIRUBIN,TOTAL 0.4 MG/DL (0.2-1.0); BLOOD UREA NITROGEN 16 mg/dL (7-18); CALCIUM 8.1 MG/DL (8.5-10.1); CARBON DIOXIDE 28 MMOL/L (21-32); CHLORIDE 101 MMOL/L (98-107); CREATININE 0.8 MG/DL (0.55-1.30); POTASSIUM 3.1 MMOL/L (3.5-5.1); SODIUM 138 MMOL/L (136-145)
--- NOTE | 2020-09-27 07:33 | NUR ---
NURSE NOTES: Received report from LUIS MIGUEL Gr. Pt is sleeping and resting in bed, stable on NRB 15LLPM, FiO2 60%. Breakfast brought in at this time. Pt unlabored and even breathing. no s/s or complaint of distress at this time. Pt IV on LAC20g SL, asymptomatic and intact,running fluid at 60cc, Pt bed low and locked, call light in reach and bed alarm on. Verbalized understanding to call for help
[2020-09-27 08:00] VITALS: BP 127/77
[2020-09-27] MEDS: Heparin 5000 units/ml inj SUBQ SCH ×2 (08:35→20:26)
--- NOTE | 2020-09-27 08:47 | General Progress Note ---
Subjective Constitutional: Reports: weakness Allergies: Coded Allergies: No Known Allergies (Unverified , 09/24/20) All Systems: reviewed and negative except above Subjective sleepy calm Objective Last 24 Hour Vital Signs Date Time Temp Pulse Resp B/P (MAP) Pulse Ox O2 Delivery O2 Flow Rate FiO2 09/27/20 08:34 137/77 09/27/20 04:00 97.7 50 20 133/78 (96) 100 09/27/20 04:00 48 09/27/20 00:00 97.5 62 20 135/73 (93) 97 09/27/20 00:00 52 09/26/20 23:15 168/80 09/26/20 21:00 Non-Rebreather 15.0 09/26/20 20:00 98.4 55 30 155/90 (111) 95 09/26/20 20:00 59 09/26/20 16:00 59 09/26/20 16:00 98.0 69 20 135/80 (98) 98 09/26/20 12:00 97.7 65 22 145/82 (103) 99 09/26/20 12:00 60 09/26/20 09:00 Non-Rebreather 15.0 Intake and Output 09/26/20 09/27/20 19:00 07:00 Intake Total 360 ml 200 ml Output Total 1 ml Balance 360 ml 199 ml Intake Oral 360 ml 200 ml Output Stool Total 1 ml # Voids 3 1 Laboratory Tests 09/27/20 05:34: White Blood Count 6.7, Red Blood Count 4.28, Hemoglobin 12.5, Hematocrit 36.6L, Mean Corpuscular Volume 86, Mean Corpuscular Hemoglobin 29.3, Mean Corpuscular Hemoglobin Concent 34.2, Red Cell Distribution Width 12.6, Platelet Count 508H, Mean Platelet Volume 6.1L, Neutrophils (%) (Auto) 70.9, Lymphocytes (%) (Auto) 18.2L, Monocytes (%) (Auto) 10.5H, Eosinophils (%) (Auto) 0.1, Basophils (%) (Auto) 0.4, Sodium Level 138, Potassium Level 3.1L, Chloride Level 101, Carbon Dioxide Level 28, Anion Gap 9, Blood Urea Nitrogen 16, Creatinine 0.8, Estimat Glomerular Filtration Rate > 60, Glucose Level 110H, Calcium Level 8.1L, Total Bilirubin 0.4, Direct Bilirubin 0.1, Aspartate Amino Transf (AST/SGOT) 65H, Alanine Aminotransferase (ALT/SGPT) 65, Alkaline Phosphatase 87, Total Protein 7.6, Albumin 2.6L, Globulin 5.0, Albumin/Globulin Ratio 0.5L Height (Feet): 5 Height (Inches): 0.00 Weight (Pounds): 152 General Appearance: lethargic EENT: normal ENT inspection Neck: normal alignment Cardiovascular: normal peripheral pulses, normal rate, regular rhythm Respiratory/Chest: chest wall non-tender, lungs clear, normal breath sounds Abdomen: normal bowel sounds, non tender, soft Extremities: normal inspection Edema: no edema noted Arm (L), no edema noted Arm (R), no edema noted Leg (L), no edema noted Leg (R), no edema noted Pedal (L), no edema noted Pedal (R), no edema noted Generalized Neurologic: motor weakness Skin: normal pigmentation, warm/dry Assessment/Plan Problem List: (1) SOB (shortness of breath) ICD Codes: R06.02 - Shortness of breath SNOMED: 846445514 (2) Pneumonia ICD Codes: J18.9 - Pneumonia, unspecified organism SNOMED: 163209239 (3) Malnutrition ICD Codes: E46 - Unspecified protein-calorie malnutrition SNOMED: 17165693 (4) Hypoxemia ICD Codes: R09.02 - Hypoxemia SNOMED: 943871934 (5) Dyspnea ICD Codes: R06.00 - Dyspnea, unspecified SNOMED: 542321778 (6) Pulmonary edema ICD Codes: J81.1 - Chronic pulmonary edema SNOMED: 61615990 (7) COVID-19 ICD Codes: U07.1 - COVID-19 SNOMED: 221059461 Status: stable, progressing Assessment/Plan: o2 pulm tx abx pt diet cbc bmp am dc plan Ankur Parker DO Sep 27, 2020 08:47
--- NOTE | 2020-09-27 08:56 | NUR ---
NURSE NOTES: At med pass, found Pts own medication bedside. Taken down to pharmacy #[id number]. 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 investigated for further home meds that are bedside, none found, none reported by Pt. called Dr Parker to inquire about continuing the home med, order acknowledged and carried out. Addendum: 09/27/20 at 0858 by Jing Mcclain RN RN reciept placed in chart.
[2020-09-27] MEDS: D5 1/2NS 1,000 ML IV SCH (10:56)
[2020-09-27] MEDS ORDERED: Sennosides 8.6mg tab ORAL PRN (11:15)
--- NOTE | 2020-09-27 11:44 | Infectious Diseases Prog Note ---
Assessment/Plan Assessment/Plan A 1. COVID19 pneumonia 2. increased LFT improving 3. Hypoxemia P 1. continue remdesivir day 4 2. continue dexamethasone day 4 3. continue isolation 4. will follow up cultures Subjective ROS Limited/Unobtainable: Yes Constitutional: Denies: fever Allergies: Coded Allergies: No Known Allergies (Unverified , 09/24/20) Objective Last 24 Hour Vital Signs Date Time Temp Pulse Resp B/P (MAP) Pulse Ox O2 Delivery O2 Flow Rate FiO2 09/27/20 09:00 Non-Rebreather 15.0 09/27/20 08:34 137/77 09/27/20 08:00 98.5 58 19 127/77 (94) 100 09/27/20 08:00 61 09/27/20 04:00 97.7 50 20 133/78 (96) 100 09/27/20 04:00 48 09/27/20 00:00 97.5 62 20 135/73 (93) 97 09/27/20 00:00 52 09/26/20 23:15 168/80 09/26/20 21:00 Non-Rebreather 15.0 09/26/20 20:00 98.4 55 30 155/90 (111) 95 09/26/20 20:00 59 09/26/20 16:00 59 09/26/20 16:00 98.0 69 20 135/80 (98) 98 09/26/20 12:00 97.7 65 22 145/82 (103) 99 09/26/20 12:00 60 Height (Feet): 5 Height (Inches): 0.00 Weight (Pounds): 152 General Appearance: no acute distress HEENT: mucous membranes moist Respiratory/Chest: other - oxygen by rebreathing mask Cardiovascular: normal rate Abdomen: soft, non tender Extremities: no edema Neurologic/Psychiatric: other - sleeping Laboratory Tests Test 09/27/20 05:34 White Blood Count 6.7 K/UL (4.8-10.8) Red Blood Count 4.28 M/UL (4.20-5.40) Hemoglobin 12.5 G/DL (12.0-16.0) Hematocrit 36.6 % (37.0-47.0) L Mean Corpuscular Volume 86 FL (80-99) Mean Corpuscular Hemoglobin 29.3 PG (27.0-31.0) Mean Corpuscular Hemoglobin Concent 34.2 G/DL (32.0-36.0) Red Cell Distribution Width 12.6 % (11.6-14.8) Platelet Count 508 K/UL (150-450) H Mean Platelet Volume 6.1 FL (6.5-10.1) L Neutrophils (%) (Auto) 70.9 % (45.0-75.0) Lymphocytes (%) (Auto) 18.2 % (20.0-45.0) L Monocytes (%) (Auto) 10.5 % (1.0-10.0) H Eosinophils (%) (Auto) 0.1 % (0.0-3.0) Basophils (%) (Auto) 0.4 % (0.0-2.0) Sodium Level 138 MMOL/L (136-145) Potassium Level 3.1 MMOL/L (3.5-5.1) L Chloride Level 101 MMOL/L (98-107) Carbon Dioxide Level 28 MMOL/L (21-32) Anion Gap 9 mmol/L (5-15) Blood Urea Nitrogen 16 mg/dL (7-18) Creatinine 0.8 MG/DL (0.55-1.30) Estimat Glomerular Filtration Rate > 60 mL/min (>60) Glucose Level 110 MG/DL (74-106) H Calcium Level 8.1 MG/DL (8.5-10.1) L Total Bilirubin 0.4 MG/DL (0.2-1.0) Direct Bilirubin 0.1 MG/DL (0.0-0.3) Aspartate Amino Transf (AST/SGOT) 65 U/L (15-37) H Alanine Aminotransferase (ALT/SGPT) 65 U/L (12-78) Alkaline Phosphatase 87 U/L (46-116) Total Protein 7.6 G/DL (6.4-8.2) Albumin 2.6 G/DL (3.4-5.0) L Globulin 5.0 g/dL Albumin/Globulin Ratio 0.5 (1.0-2.7) L Current Medications Medications (Trade) Dose Ordered Sig/Shannon Route PRN Reason Start Time Stop Time Status Last Admin Dose Admin Acetaminophen (Tylenol) 500 mg Q6H PRN ORAL Pain Scale 1-3/ Temp > 100.4 F 09/24/20 23:15 10/24/20 23:14 09/24/20 23:34 Albuterol/ Ipratropium (Combivent Respimat) 1 puff Q6H PRN INH Shortness of Breath 09/24/20 16:30 10/24/20 16:29 09/26/20 05:20 Clonidine HCl (Catapres Tab) 0.1 mg QID ORAL 09/26/20 23:15 12/25/20 23:14 09/27/20 08:34 Dexamethasone (Decadron) 6 mg DAILY ORAL 09/25/20 09:00 10/04/20 09:01 09/27/20 08:34 Dextrose/Sodium Chloride 1,000 ml @ 60 mls/hr [id number] IV 09/24/20 16:15 10/24/20 16:14 09/27/20 10:56 Guaifenesin/ Dextromethorphan (Robitussin DM Syrup) 15 ml Q8H PRN ORAL For Cough 09/24/20 23:15 12/23/20 23:14 09/25/20 09:23 Heparin Sodium (Porcine) (Heparin 5000 units/ml) 5,000 units EVERY 12 HOURS SUBQ 09/24/20 21:00 11/08/20 20:59 09/27/20 08:35 Ondansetron HCl (Zofran) 4 mg Q6H PRN IVP Nausea & Vomiting 09/24/20 23:15 10/24/20 23:14 Remdesivir 100 mg/ Sodium Chloride 250 ml @ 250 mls/hr Q24H IV 09/25/20 18:00 09/28/20 18:59 09/26/20 17:57 Sennosides (Senokot) 8.6 mg DAILY PRN ORAL Constipation 09/27/20 11:15 10/27/20 11:14 Hugo Flynn MD Sep 27, 2020 11:44
[2020-09-27 12:00] VITALS: BP 123/73
--- NOTE | 2020-09-27 14:06 | Pulmonology Progress Note ---
Subjective ROS Limited/Unobtainable: Yes Constitutional: Denies: fever HEENT: Repors: no symptoms Respiratory: Reports: shortness of breath Cardiovascular: Reports: no symptoms Gastrointestinal/Abdominal: Denies: nausea, vomiting, diarrhea Allergies: Coded Allergies: No Known Allergies (Unverified , 09/24/20) All Systems: reviewed and negative except above Objective Last 24 Hour Vital Signs Date Time Temp Pulse Resp B/P (MAP) Pulse Ox O2 Delivery O2 Flow Rate FiO2 09/27/20 12:53 123/73 09/27/20 12:00 96.4 60 18 123/73 (90) 100 09/27/20 12:00 46 09/27/20 09:00 Non-Rebreather 15.0 09/27/20 08:34 137/77 09/27/20 08:00 98.5 58 19 127/77 (94) 100 09/27/20 08:00 61 09/27/20 04:00 97.7 50 20 133/78 (96) 100 09/27/20 04:00 48 09/27/20 00:00 97.5 62 20 135/73 (93) 97 09/27/20 00:00 52 09/26/20 23:15 168/80 09/26/20 21:00 Non-Rebreather 15.0 09/26/20 20:00 98.4 55 30 155/90 (111) 95 09/26/20 20:00 59 09/26/20 16:00 59 09/26/20 16:00 98.0 69 20 135/80 (98) 98 Intake and Output 09/26/20 09/27/20 19:00 07:00 Intake Total 360 ml 200 ml Output Total 1 ml Balance 360 ml 199 ml Intake Oral 360 ml 200 ml Output Stool Total 1 ml # Voids 3 1 Objective 09/27/2020 pt sitting up in bed; on 15L NRB, saturating at 100%; wean down oxygen 09/26/2020 pt sitting up in bed; now on 15 L Venturi mask, saturating at 100% 09/25/2020 pt asleep; per RN, earlier today pt's saturation dropped to 90% on 4 lpm NC with increased work of breathing General Appearance: WD/WN, no acute distress HEENT: normocephalic, atraumatic Respiratory: chest wall non-tender, lungs clear Cardiovascular: normal rate, regular rhythm Neurologic: alert, oriented x 3 Laboratory Tests 09/27/20 05:34: White Blood Count 6.7, Red Blood Count 4.28, Hemoglobin 12.5, Hematocrit 36.6L, Mean Corpuscular Volume 86, Mean Corpuscular Hemoglobin 29.3, Mean Corpuscular Hemoglobin Concent 34.2, Red Cell Distribution Width 12.6, Platelet Count 508H, Mean Platelet Volume 6.1L, Neutrophils (%) (Auto) 70.9, Lymphocytes (%) (Auto) 18.2L, Monocytes (%) (Auto) 10.5H, Eosinophils (%) (Auto) 0.1, Basophils (%) (Auto) 0.4, Sodium Level 138, Potassium Level 3.1L, Chloride Level 101, Carbon Dioxide Level 28, Anion Gap 9, Blood Urea Nitrogen 16, Creatinine 0.8, Estimat Glomerular Filtration Rate > 60, Glucose Level 110H, Calcium Level 8.1L, Total Bilirubin 0.4, Direct Bilirubin 0.1, Aspartate Amino Transf (AST/SGOT) 65H, Alanine Aminotransferase (ALT/SGPT) 65, Alkaline Phosphatase 87, Total Protein 7.6, Albumin 2.6L, Globulin 5.0, Albumin/Globulin Ratio 0.5L Current Medications Medications (Trade) Dose Ordered Sig/Shannon Route PRN Reason Start Time Stop Time Status Last Admin Dose Admin Acetaminophen (Tylenol) 500 mg Q6H PRN ORAL Pain Scale 1-3/ Temp > 100.4 F 09/24/20 23:15 10/24/20 23:14 09/24/20 23:34 Albuterol/ Ipratropium (Combivent Respimat) 1 puff Q6H PRN INH Shortness of Breath 09/24/20 16:30 10/24/20 16:29 09/26/20 05:20 Clonidine HCl (Catapres Tab) 0.1 mg QID ORAL 09/26/20 23:15 12/25/20 23:14 09/27/20 12:53 Dexamethasone (Decadron) 6 mg DAILY ORAL 09/25/20 09:00 10/04/20 09:01 09/27/20 08:34 Dextrose/Sodium Chloride 1,000 ml @ 60 mls/hr [id number] IV 09/24/20 16:15 10/24/20 16:14 09/27/20 10:56 Guaifenesin/ Dextromethorphan (Robitussin DM Syrup) 15 ml Q8H PRN ORAL For Cough 09/24/20 23:15 12/23/20 23:14 09/25/20 09:23 Heparin Sodium (Porcine) (Heparin 5000 units/ml) 5,000 units EVERY 12 HOURS SUBQ 09/24/20 21:00 11/08/20 20:59 09/27/20 08:35 Ondansetron HCl (Zofran) 4 mg Q6H PRN IVP Nausea & Vomiting 09/24/20 23:15 10/24/20 23:14 Remdesivir 100 mg/ Sodium Chloride 250 ml @ 250 mls/hr Q24H IV 09/25/20 18:00 09/28/20 18:59 09/26/20 17:57 Sennosides (Senokot) 8.6 mg DAILY PRN ORAL Constipation 09/27/20 11:15 10/27/20 11:14 Assessment/Plan Assessment/Plan 1. COVID-19 pneumonia. - On decadron - On Remdesivir, added per Dr. Young - currently on 15 L NRB; - switch to Ventimask 15L while keeping SaO2 >92% given her current normoxemic status on NRB 2. No other known medical illnesses. 3. Mild hypoxemia. DVT ppx The care of this patient was discussed with my supervising physician Time spent for this encounter was approximately 31 minutes The patient was seen and examined at bedside and all new and available data was reviewed in the patients chart. I agree with the above findings, impression, and plan. (Patient was seen earlier today. Signature timestamp does not reflect patient encounter time) Winston Arredondo MD Sep 27, 2020 14:06 Mario Alberto Gallo MD Sep 27, 2020 18:12
--- NOTE | 2020-09-27 15:28 | Cardiac Electrophysiology PN ---
Subjective Subjective [id number] Objective Last 24 Hour Vital Signs Date Time Temp Pulse Resp B/P (MAP) Pulse Ox O2 Delivery O2 Flow Rate FiO2 09/27/20 12:53 123/73 09/27/20 12:00 96.4 60 18 123/73 (90) 100 09/27/20 12:00 46 09/27/20 09:00 Non-Rebreather 15.0 09/27/20 08:34 137/77 09/27/20 08:00 98.5 58 19 127/77 (94) 100 09/27/20 08:00 61 09/27/20 04:00 97.7 50 20 133/78 (96) 100 09/27/20 04:00 48 09/27/20 00:00 97.5 62 20 135/73 (93) 97 09/27/20 00:00 52 09/26/20 23:15 168/80 09/26/20 21:00 Non-Rebreather 15.0 09/26/20 20:00 98.4 55 30 155/90 (111) 95 09/26/20 20:00 59 09/26/20 16:00 59 09/26/20 16:00 98.0 69 20 135/80 (98) 98 Intake and Output 09/26/20 09/27/20 18:59 06:59 Intake Total 360 ml 200 ml Output Total 1 ml Balance 360 ml 199 ml Intake Oral 360 ml 200 ml Output Stool Total 1 ml # Voids 3 1 Laboratory Tests Test 09/27/20 05:34 White Blood Count 6.7 K/UL (4.8-10.8) Red Blood Count 4.28 M/UL (4.20-5.40) Hemoglobin 12.5 G/DL (12.0-16.0) Hematocrit 36.6 % (37.0-47.0) L Mean Corpuscular Volume 86 FL (80-99) Mean Corpuscular Hemoglobin 29.3 PG (27.0-31.0) Mean Corpuscular Hemoglobin Concent 34.2 G/DL (32.0-36.0) Red Cell Distribution Width 12.6 % (11.6-14.8) Platelet Count 508 K/UL (150-450) H Mean Platelet Volume 6.1 FL (6.5-10.1) L Neutrophils (%) (Auto) 70.9 % (45.0-75.0) Lymphocytes (%) (Auto) 18.2 % (20.0-45.0) L Monocytes (%) (Auto) 10.5 % (1.0-10.0) H Eosinophils (%) (Auto) 0.1 % (0.0-3.0) Basophils (%) (Auto) 0.4 % (0.0-2.0) Sodium Level 138 MMOL/L (136-145) Potassium Level 3.1 MMOL/L (3.5-5.1) L Chloride Level 101 MMOL/L (98-107) Carbon Dioxide Level 28 MMOL/L (21-32) Anion Gap 9 mmol/L (5-15) Blood Urea Nitrogen 16 mg/dL (7-18) Creatinine 0.8 MG/DL (0.55-1.30) Estimat Glomerular Filtration Rate > 60 mL/min (>60) Glucose Level 110 MG/DL (74-106) H Calcium Level 8.1 MG/DL (8.5-10.1) L Total Bilirubin 0.4 MG/DL (0.2-1.0) Direct Bilirubin 0.1 MG/DL (0.0-0.3) Aspartate Amino Transf (AST/SGOT) 65 U/L (15-37) H Alanine Aminotransferase (ALT/SGPT) 65 U/L (12-78) Alkaline Phosphatase 87 U/L (46-116) Total Protein 7.6 G/DL (6.4-8.2) Albumin 2.6 G/DL (3.4-5.0) L Globulin 5.0 g/dL Albumin/Globulin Ratio 0.5 (1.0-2.7) L Wilmer Kiser MD Sep 27, 2020 15:27
[2020-09-27] MEDS ORDERED: D5 1/2NS 1000ml IV ONE (15:35)
[2020-09-27 16:00] VITALS: BP 141/75
[2020-09-27] MEDS: Maintenance Dose:Remdesivir 100mg/NS 230ml x 4 Doses IV SCH ×2 (17:32)
--- NOTE | 2020-09-27 18:46 | NUR ---
NURSE HAND-OFF REPORT: Important Events on Shift: BP med changed, awaiting 2d Echo, QING- Margi aware, Patient Status: fc, stable Diet: regular Pending Orders: Pending Results/Labs: 2decho Pending notification: Latest Vital Signs: Temperature 97.0 , Pulse 50 , B/P 141 /75 , Respiratory Rate 18 , O2 SAT 100 , Non-Rebreather, O2 Flow Rate 15.0 . Vital Sign Comment: EKG Rhythm: Sinus Bradycardia Rhythm change?: N MD Notified?: - MD Response: Latest Ackerman Fall Score: 35 Fall Risk: Medium Risk Safety Measures: Call light Within Reach, Bed Alarm Zone 1, Side Rails Side Rails x2, Bed position Low and Locked. Fall Precautions: Yellow Socks Yellow Gown Door Sign Patient Fall Education Report to be given. Addendum: 09/27/20 at 1945 by Jing Mcclain RN RN Pt K 3.1 today, contacted to see if he wanted to replace- order acknowledged and carried out. BMP and CBC to be added to AM Labs, KCL 40 PO once Addendum: 09/27/20 at 1945 by Jing Mcclain RN RN Pt is stable, report and plan of care endorsed to LUIS MIGUEL Freire.
--- NOTE | 2020-09-27 19:20 | NUR ---
NURSE NOTES: RECEIVED REPORT FROM LUIS MIGUEL KIRKPATRICK. PT IN BED. AWAKE, ALERT, ORIENTED X4, ABLE TO MAKE NEEDS KNOWN. NO RESP DISTRESS NOTED ON NON-REBREATHER AT 15L/MIN SATING AT 100%. NO C/O PAIN. IV IN LEFT AC RUNNING D51/2 NS AT 60CC/HR TOLERATING WELL. BED IN LOW POSITION & LOCKED. SIDE RAILS UP X2. CALL LIGHT WITH IN REACH. BED ALARM ON.
[2020-09-27 20:00] VITALS: BP 137/66
--- NOTE | 2020-09-27 21:45 | Consultation ---
DATE OF CONSULTATION: 09/27/2020 CARDIOLOGY CONSULTATION CONSULTING PHYSICIAN: Wilmer Ksier M.D. REFERRING PHYSICIAN: Ankur Parker D.O. REASON FOR CONSULTATION: Bradycardia. HISTORY OF PRESENT ILLNESS: This is a 49-year-old lady, who presents to the hospital with cough and congestion as well as body aches for about 10 days. The patient was found to be COVID positive. The patient was admitted and had bilateral patchy infiltrate. Overnight, the patient was bradycardic with heart rate of 40. Cardiology consultation was obtained for further evaluation. REVIEW OF SYSTEMS: Negative other than what is mentioned in the history of present illness. PAST MEDICAL HISTORY: As mentioned above. FAMILY HISTORY: Noncontributory. ALLERGIES: She has no known drug allergies. PHYSICAL EXAMINATION: VITAL SIGNS: Blood pressure of 120/70, pulse is 46, respirations 18, and temperature 96.4. HEAD AND NECK: Showed no JVD. LUNGS: Coarse rhonchi. CARDIOVASCULAR: Bradycardic S1 and S2 with no gallop or murmur. ABDOMEN: Soft. EXTREMITIES: No pitting edema. LABORATORY AND DIAGNOSTIC DATA: Her labs show white count of 6.7, hemoglobin 12.5, hematocrit 36.6, and platelet count 508,000. Sodium 138, potassium 3.1, BUN of 16, creatinine 0.8, and glucose of 110. Troponin is negative. ASSESSMENT AND PLAN: 1. Bradycardia due to sinus bradycardia. This is likely due to effect of clonidine that she is taking 0.4 mg q.i.d. Told her to discontinue. I will get an echocardiogram and check a thyroid function test and start the patient on lisinopril 10 mg b.i.d.. 2. COVID pneumonia, on remdesivir, dexamethasone, Robitussin, and albuterol. Thank you very much for allowing me to participate in the care of this patient. Please do not hesitate to contact me for any questions regarding my evaluation. Sincerely, Wilmer Kiser M.D. DR: OBDULIA JOB#: [id number] CC:
[2020-09-28] VITALS: BP 125/70
[2020-09-28 04:00] VITALS: BP 137/77
[2020-09-28] MEDS: D5 1/2NS 1,000 ML IV SCH (04:00)
--- NOTE | 2020-09-28 07:36 | NUR ---
NURSE HAND-OFF REPORT: Important Events on Shift:[N/A] Patient Status: [STABLE] Diet: [REG Pending Orders: [] Pending Results/Labs:[] Pending MD notification:[] Latest Vital Signs: Temperature 97.7 , Pulse 48 , B/P 137 /77 , Respiratory Rate 22 , O2 SAT 98 , Non-Rebreather, O2 Flow Rate 15.0 . Vital Sign Comment: [] EKG Rhythm: Sinus Bradycardia Rhythm change?: N MD Notified?: - MD Response: Latest Ackerman Fall Score: 35 Fall Risk: Medium Risk Safety Measures: Call light Within Reach, Bed Alarm Zone 1, Side Rails Side Rails x2, Bed position Low and Locked. Fall Precautions: Yellow Socks Yellow Gown Door Sign Patient Fall Education Report given to [nick,rn].
--- NOTE | 2020-09-28 07:37 | NUR ---
NURSE NOTES: Received patient in bed awake. Non rebreather mask in place at 15LPM saturating at 100%, no SOB or acute distress. O2 lowered to 10LPM, will observe. IV line intact and patent. HOB elevated. Bed locked in low position. Call light within reach. Will continue plan of care.
[2020-09-28 08:00] VITALS: BP 109/61
[2020-09-28] MEDS ORDERED: Lisinopril 10mg tab ORAL SCH (09:00)
[2020-09-28] MEDS: Heparin 5000 units/ml inj SUBQ SCH (09:03)
--- NOTE | 2020-09-28 09:25 | General Progress Note ---
Subjective Constitutional: Reports: weakness Allergies: Coded Allergies: No Known Allergies (Unverified , 09/24/20) All Systems: reviewed and negative except above Subjective sleepy calm Objective Last 24 Hour Vital Signs Date Time Temp Pulse Resp B/P (MAP) Pulse Ox O2 Delivery O2 Flow Rate FiO2 09/28/20 09:02 109/61 09/28/20 08:00 96.4 70 21 109/61 (77) 93 09/28/20 04:00 97.7 56 22 137/77 (97) 98 09/28/20 04:00 48 09/28/20 00:00 97.2 52 22 125/70 (88) 100 09/28/20 00:00 42 09/27/20 21:00 Non-Rebreather 15.0 09/27/20 20:00 48 09/27/20 20:00 97.9 56 22 137/66 (89) 100 09/27/20 16:00 50 09/27/20 16:00 97.0 47 18 141/75 (97) 100 09/27/20 12:53 123/73 09/27/20 12:00 96.4 60 18 123/73 (90) 100 09/27/20 12:00 46 Intake and Output 09/27/20 09/28/20 19:00 07:00 Intake Total 480 ml 150 ml Balance 480 ml 150 ml Intake Oral 480 ml 150 ml # Voids 2 3 Height (Feet): 5 Height (Inches): 0.00 Weight (Pounds): 152 General Appearance: lethargic EENT: normal ENT inspection Neck: normal alignment Cardiovascular: normal peripheral pulses, normal rate, regular rhythm Respiratory/Chest: chest wall non-tender, lungs clear, normal breath sounds Abdomen: normal bowel sounds, non tender, soft Extremities: normal inspection Edema: no edema noted Arm (L), no edema noted Arm (R), no edema noted Leg (L), no edema noted Leg (R), no edema noted Pedal (L), no edema noted Pedal (R), no edema noted Generalized Neurologic: motor weakness Skin: normal pigmentation, warm/dry Assessment/Plan Problem List: (1) SOB (shortness of breath) ICD Codes: R06.02 - Shortness of breath SNOMED: 076943867 (2) Pneumonia ICD Codes: J18.9 - Pneumonia, unspecified organism SNOMED: 307369660 (3) Malnutrition ICD Codes: E46 - Unspecified protein-calorie malnutrition SNOMED: 65673325 (4) Hypoxemia ICD Codes: R09.02 - Hypoxemia SNOMED: 639229126 (5) Dyspnea ICD Codes: R06.00 - Dyspnea, unspecified SNOMED: 512930541 (6) Pulmonary edema ICD Codes: J81.1 - Chronic pulmonary edema SNOMED: 36029704 (7) COVID-19 ICD Codes: U07.1 - COVID-19 SNOMED: 571154579 Status: stable, progressing Assessment/Plan: o2 pulm tx abx pt diet cbc bmp am dc if clear Ankur Parker DO Sep 28, 2020 09:25
[2020-09-28 09:43] LABS: BASOPHILS % (AUTO) 0.5 % (0.0-2.0); EOSINOPHILS % (AUTO) 0.2 % (0.0-3.0); HEMATOCRIT 37.3 % (37.0-47.0); MEAN CORPUSCULAR VOLUME 84 FL (80-99); MONOCYTES % (AUTO) 10.8 % (1.0-10.0); NEUTROPHILS % (AUTO) 73.6 % (45.0-75.0); PLATELET COUNT 538 K/UL (150-450); RED BLOOD COUNT 4.46 M/UL (4.20-5.40); RED CELL DISTRIBUTION WIDTH 13.6 % (11.6-14.8); WHITE BLOOD COUNT 7.3 K/UL (4.8-10.8)
[2020-09-28 10:16] LABS: ALANINE AMINOTRANSFERASE 75 U/L (12-78); ALBUMIN 2.6 G/DL (3.4-5.0); ALBUMIN/GLOBULIN RATIO 0.5 (1.0-2.7); ALKALINE PHOSPHATASE 86 U/L (46-116); ANION GAP 9 mmol/L (5-15); ASPARTATE AMINO TRANSFERASE 71 U/L (15-37); BILIRUBIN,DIRECT 0.2 MG/DL (0.0-0.3); BILIRUBIN,TOTAL 0.3 MG/DL (0.2-1.0); BLOOD UREA NITROGEN 13 mg/dL (7-18); CALCIUM 8.1 MG/DL (8.5-10.1); CARBON DIOXIDE 27 MMOL/L (21-32); CHLORIDE 103 MMOL/L (98-107); CREATININE 0.8 MG/DL (0.55-1.30); POTASSIUM 3.6 MMOL/L (3.5-5.1); SODIUM 139 MMOL/L (136-145)
[2020-09-28 12:00] VITALS: BP 120/84
--- NOTE | 2020-09-28 13:30 | NUR ---
NURSE NOTES: Patient discharged in stable condition. personnel monitor removed. IV line removed. ID band removed. Discharge instructions given, wheeled to lobby. Belongings accounted for. No new skin issues noted. Wheeled to lobby and picked up by son.
--- NOTE | 2020-09-28 14:59 | Cardiac Electrophysiology PN ---
Assessment/Plan Assessment/Plan 1. Sinus bradycardia. This is likely due to effect of clonidine that she was taking 0.4 mg q.i.d. that was DCed. 2. HTN On Lisinopril 10 daily 3. COVID pneumonia, on remdesivir, dexamethasone, Robitussin, and albuterol. DC home in progress Subjective Subjective Comfortable in NAD off Oxygen in Covid isolation. DC home in progress Objective Last 24 Hour Vital Signs Date Time Temp Pulse Resp B/P (MAP) Pulse Ox O2 Delivery O2 Flow Rate FiO2 09/28/20 12:00 73 09/28/20 12:00 97.9 63 20 120/84 (96) 97 09/28/20 09:02 109/61 09/28/20 09:00 Non-Rebreather 10.0 09/28/20 08:00 88 09/28/20 08:00 96.4 70 21 109/61 (77) 93 09/28/20 04:00 97.7 56 22 137/77 (97) 98 09/28/20 04:00 48 09/28/20 00:00 97.2 52 22 125/70 (88) 100 09/28/20 00:00 42 09/27/20 21:00 Non-Rebreather 15.0 09/27/20 20:00 48 09/27/20 20:00 97.9 56 22 137/66 (89) 100 09/27/20 16:00 50 09/27/20 16:00 97.0 47 18 141/75 (97) 100 Intake and Output 09/27/20 09/28/20 19:00 07:00 Intake Total 480 ml 150 ml Balance 480 ml 150 ml Intake Oral 480 ml 150 ml # Voids 2 3 Laboratory Tests Test 09/28/20 04:20 White Blood Count 7.3 K/UL (4.8-10.8) Red Blood Count 4.46 M/UL (4.20-5.40) Hemoglobin 13.0 G/DL (12.0-16.0) Hematocrit 37.3 % (37.0-47.0) Mean Corpuscular Volume 84 FL (80-99) Mean Corpuscular Hemoglobin 29.1 PG (27.0-31.0) Mean Corpuscular Hemoglobin Concent 34.8 G/DL (32.0-36.0) Red Cell Distribution Width 13.6 % (11.6-14.8) Platelet Count 538 K/UL (150-450) H Mean Platelet Volume 6.0 FL (6.5-10.1) L Neutrophils (%) (Auto) 73.6 % (45.0-75.0) Lymphocytes (%) (Auto) 15.0 % (20.0-45.0) L Monocytes (%) (Auto) 10.8 % (1.0-10.0) H Eosinophils (%) (Auto) 0.2 % (0.0-3.0) Basophils (%) (Auto) 0.5 % (0.0-2.0) Sodium Level 139 MMOL/L (136-145) Potassium Level 3.6 MMOL/L (3.5-5.1) Chloride Level 103 MMOL/L (98-107) Carbon Dioxide Level 27 MMOL/L (21-32) Anion Gap 9 mmol/L (5-15) Blood Urea Nitrogen 13 mg/dL (7-18) Creatinine 0.8 MG/DL (0.55-1.30) Estimat Glomerular Filtration Rate > 60 mL/min (>60) Glucose Level 87 MG/DL (74-106) Calcium Level 8.1 MG/DL (8.5-10.1) L Total Bilirubin 0.3 MG/DL (0.2-1.0) Direct Bilirubin 0.2 MG/DL (0.0-0.3) Aspartate Amino Transf (AST/SGOT) 71 U/L (15-37) H Alanine Aminotransferase (ALT/SGPT) 75 U/L (12-78) Alkaline Phosphatase 86 U/L (46-116) Troponin I 0.004 ng/mL (0.000-0.056) Total Protein 7.5 G/DL (6.4-8.2) Albumin 2.6 G/DL (3.4-5.0) L Globulin 4.9 g/dL Albumin/Globulin Ratio 0.5 (1.0-2.7) L Thyroid Stimulating Hormone (TSH) 0.205 uiU/mL (0.358-3.740) Free Thyroxine 1.68 NG/DL (0.76-1.46) H Objective HEAD AND NECK: Showed no JVD. LUNGS: Coarse rhonchi. CARDIOVASCULAR: Bradycardic S1 and S2 with no gallop or murmur. ABDOMEN: Soft. EXTREMITIES: No pitting edema. Wilmer Kiser MD Sep 28, 2020 14:59
--- NOTE | 2020-09-30 11:42 | Discharge Summary ---
Discharge Summary Discharge Summary _ DATE OF ADMISSION: 09/24/2020 DATE OF DISCHARGE: 09/28/2020 DISCHARGED BY: Dr. Parker REASON FOR ADMISSION: 49 years old female with no significant past medical history, presented to emergency room for evaluation. She reported that symptoms started about 10 days ago. Result of the Covid test 5 days ago was positive Patient reported worsening shortness of breath and fatigue. She reported low-grade fever. No chest pain, no abdominal pain, nausea or vomiting. Patient was hypoxic and required supplemental oxygen. No fevers. Laboratory work-up revealed no leukocytosis, stable hemoglobin and hematocrit. Blood pressure was elevated 154/96 Stable renal parameters. Lactic acid 1.4. Rapid COVID-19 in ED was positive. CRP 26.7, LDH 374, ferritin 653, D-dimer 0.52. Chest X-ray revealed diffuse bilateral patchy opacities. In emergency department patient received steroids, empiric antibiotic, liter of IV fluid, albuterol inhaler and admitted to isolation room for further management. CONSULTANTS: welt beater Dr. Liao pulmonary Dr. Gallo ID specialist Dr. Young HOSPITAL COURSE: Patient admitted to isolation room. Supplemental oxygen provided and titrated to keep pulse oximetry above 92%. MDI albuterol provided as needed. Patient started on steroids and remdesivir. Empiric antibiotic provided. DVT prophylaxis provided. Antitussive provided as needed. Patient noted to have elevated blood pressure. Patient initially started on clonidine, but developed sinus bradycardia . Clonidine was discontinued , and patient started on lisinopril. Blood pressure improved. Prior to discharge blood pressure 120/84. Patient clinically improved and was ready for discharge home. FINAL DIAGNOSES COVID pneumonia Hypoxemia Hypertension DISCHARGE MEDICATIONS: See Medication Reconciliation list. DISCHARGE INSTRUCTIONS: Patient was discharged home Patient was instructed on self isolation FINAL DIAGNOSES: I have been assigned to dictate discharge summary for this account. I was not involved in the patient's management. Nathalia Moran NP Sep 30, 2020 11:42
== END 2020-09-28 13:30 | disposition home or self-care (01) | DRG 137 ==
LOC: EDBD 10:20 → EMR 10:50 → 2E 11:43 → EDBEDREQ 14:14
DX: U07.1 COVID-19 (principal); J12.89 Other viral pneumonia; R09.02 Hypoxemia; E46 Unspecified protein-calorie malnutrition; Z68.29 Body mass index [BMI] 29.0-29.9, adult; I10 Essential (primary) hypertension; J81.1 Chronic pulmonary edema
CPT/HCPCS: 36415; 71045; 80053; 81003; 82248; 82550; 82553; 82728; 83605; 83615; 83690; 84439; 84443; 84484; 85025; 85379; 85610; 85730; 86140; 96365; 96375; 99285; J3490; J8499; U0002